=== PATIENT | female | born 1990 | race Caucasian/White ===

== ENCOUNTER 2017-02-13 04:15 | Emergency (ER) | payer OTHER ==
[2017-02-13 04:22] VITALS: BP 107/69; PULSE 80; RESP 18; TEMP 98.4; O2SAT 96
--- NOTE | 2017-02-13 04:33 | EDPHY ---
H & P Stated Complaint: LEFT EAR ACHE , X1 HR, CANT SLEEP, TOOK 800MG ADVIL Time Seen by Provider: 02/13/17 04:23 HPI/ROS: Chief Complaint: Ear pain HPI: 26-year-old woman who is been having ear pain in her left ear for the last hour. Some subjective fevers and malaise for the last couple of days. No sore throat. No congestion or a nose. Is not prone to ear infections. Denies swimming other aquatic activities. No discharge from ear. In addition the patient is requesting urinalysis. 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 She is being followed by urologist in [place]. He has requested that any time she has seen that she have a urine sent to evaluate for possible UTI. Patient denies any symptoms at this time. ROS: 10 point Review of Systems is negative except as noted in the HPI. PMH: None Social History: No smoking, occasional alcohol, no recreational drug use Family History: non-contributory Physical Exam: Gen: Awake, Alert, No Distress HEENT: Left TM is mildly erythematous, there is a very mild effusion, it is not bulging, ear canals normal, right ear is normal Nose: no rhinorrhea, no sinus tenderness to percussion Eyes: PERRLA, EOMI Mouth: Moist mucosa Neck: Supple, no JVD Skin: no rash Neuro: CN II-XII intact, Sensation grossly intact, Strength 5/5 in bilateral upper and lower extremities - Personal History LMP (Females 10-55): IUD In Place Current Tetanus/Diphtheria Vaccine: Yes - Medical/Surgical History Hx Asthma: No Hx Chronic Respiratory Disease: No Hx Diabetes: No Hx Cardiac Disease: No Hx Renal Disease: No Hx Cirrhosis: No Hx Alcoholism: No Hx HIV/AIDS: No Hx Splenectomy or Spleen Trauma: No Other PMH: KIDNEY SURG CHILD, KIDNEY INFECT - Social History Smoking Status: Never smoked Constitutional: Initial Vital Signs Temperature (C) 36.9 C 02/13/17 04:19 Heart Rate 80 02/13/17 04:19 Respiratory Rate 18 02/13/17 04:19 Blood Pressure 107/69 02/13/17 04:19 O2 Sat (%) 96 02/13/17 04:19 O2 Delivery Mode Room Air Allergies/Adverse Reactions: No Known Allergies Allergy (Unverified 02/13/17 04:18) Home Medications: Medication Instructions Recorded Amoxicillin 500 mg PO TID 7 Days 02/13/17 MIRENA 02/13/17 Medical Decision Making ED Course/Re-evaluation: Patient has symptoms consistent with a possible mild early otitis media. She is improved with Advil. Will write a prescription with instructions that her symptoms are not improved in 24-48 hours to start prescription. She will return for any concerns. Urinalysis consistent with UTI however the patient is a history of possible urine colonization per her urologist. She is asymptomatic. She would prefer to consult with her urologist once the cultures come back rather than initiate antibiotic therapy at this time. Urine cultures have been sent. She will follow up on these and relayed the information tire urologist. I have encouraged her to return at any time for any concerns. - Data Points Laboratory Results: 02/13/17 04:45 Urine Color YELLOW Urine Appearance HAZY Urine pH 5.0 (5.0-7.5) Ur Specific B[place]ler 1.010 (1.002-1.030) Urine Protein NEGATIVE (NEGATIVE) Urine Ketones NEGATIVE (NEGATIVE) Urine Blood 1+ H (NEGATIVE) Urine Nitrate NEGATIVE (NEGATIVE) Urine Bilirubin NEGATIVE (NEGATIVE) Urine Urobilinogen NEGATIVE EU EU (0.2-1.0) Ur Leukocyte Esterase 3+ H (NEGATIVE) Urine RBC 5-10 /hpf H /hpf (0-3) Urine WBC 25-50 /hpf H /hpf (0-3) Ur Epithelial Cells TRACE /lpf /lpf (NONE-1+) Urine Bacteria 4+ /hpf H /hpf (NONE SEEN) Urine Mucus TRACE /lpf /lpf (NONE-1+) Urine Glucose NEGATIVE (NEGATIVE) Departure - Departure Disposition: Home, Routine, Self-Care Clinical Impression: Otitis media Condition: Good Instructions: Otitis Media (ED) Additional Instructions: Do not start taking the antibiotics unless symptoms worsen over the next 24-48 hours. Return to the emergency depart for uncontrolled pain, discharge from ear, uncontrolled fevers or chills, or any other concerns. Follow up with primary care physician in 3-4 days for further evaluation if you are not well. Urinalysis shows possible infection versus contamination. Urine cultures have been sent. You can call the hospital for these results in 2 days and have them forwarded to your urologist for further treatment. Referrals: Fabian Rojas MD [Medical Doctor] - As per Instructions Prescriptions: Amoxicillin 500 mg PO TID 7 Days
[2017-02-13 04:55] LABS: COLOR YELLOW; LEUKOCYTE ESTERASE,URINE 3+ (NEGATIVE); NITRITE,URINE NEGATIVE (NEGATIVE)
[2017-02-13 04:59] LABS: BACTERIA 4+ /hpf (NONE SEEN); MUCUS TRACE /lpf (NONE-1+); WBC,URINE 25-50 /hpf (0-3)
== END 2017-02-13 05:15 | disposition home or self-care (01) ==
DX: H66.92 Otitis media, unspecified, left ear (principal)